=== PATIENT | female | born 1970 | race Hispanic/Latino ===

== ENCOUNTER 2019-12-16 11:56 | Emergency (ER) | payer OTHER, SELFPAY ==
[2019-12-16 12:10] VITALS: BP 134/98; PULSE 76; RESP 16; TEMP 36.2; O2SAT 99
--- NOTE | 2019-12-16 12:16 | ED.EAR ---
HPI - Ear Problem General Chief complaint: Ear Stated complaint: left ear pain Time Seen by Provider: 12/16/19 12:10 Source: patient and RN notes reviewed Mode of arrival: ambulatory Limitations: no limitations History of Present Illness HPI Narrative: Patient presents today complaining of pain behind the left ear x5 to 6 days. Denies any pain inside her ear, or of the external ear. She has been taking ibuprofen and putting cotton in her ear without relief. She currently rates her pain 5/10. Denies decreased hearing or any other recent illness to include cough, congestion, runny nose, sore throat. MD Complaint: other (Pain behind left ear) Related Data Allergies Allergy/AdvReac Type Severity Reaction Status Date / Time No Known Allergies Allergy Uncoded 05/16/19 00:53 Review of Systems Review of Systems: Narrative: CONSTITUTIONAL: Denies body aches, fever, chills, or sweats. EYES: Denies visual changes, redness, or discharge. ENT: Denies rhinorrhea, congestion, sore throat, or otalgia. Pain behind left ear CARDIOVASCULAR: Denies chest pain, palpitations, or edema. RESPIRATORY: Denies cough or dyspnea. GASTROINTESTINAL: Denies abdominal pain, nausea, vomiting, or diarrhea. GENITOURINARY: Denies dysuria or hematuria. SKIN: Denies rash, itching, or wounds. MUSCULOSKELETAL: Denies back pain, joint pain, or myalgia. NEUROLOGIC: Denies headache, numbness, tingling, or weakness. PSYCH: Denies depression or anxiety. PMFSH Comments At time of signature, I have reviewed and agree with nursing past medical, surgical, social and family history unless otherwise noted. Please see nursing chart for further information. There is no relevant family history pertinent to the presenting complaint Exam Narrative: Exam Narrative: GENERAL: Well-appearing, well-nourished, and in no acute distress. HEAD: Normocephalic, atraumatic. EYES: EOMI. No redness or drainage. Conjunctivae normal. ENT: Mucous membranes pink and moist. Left TM could not be visualized due to cerumen. Patient has some postauricular lymphadenitis and tenderness. No swelling or erythema noted. No tenderness to the external ear. Throat normal. Uvula midline. NECK: Normal AROM. CHEST: No respiratory distress. EXTREMITIES: Normal range of motion. No edema. SKIN: Warm, dry, no rash. Capillary refill normal. Normal skin turgor. NEURO: No focal deficits. Alert and oriented x3. Gait steady. PSYCH: Normal affect. No signs of depression or anxiety. Course Course Emergency Course: It is likely that patient could have otitis media, but unable to visualize the TM. Will place her on antibiotics and she is to follow-up with her PCP in 3 to 4 days if symptoms do not improve. Vital Signs Vital signs: Vital Signs Temperature 97.2 F L 12/16/19 12:10 Pulse Rate 76 12/16/19 12:10 Respiratory Rate 16 12/16/19 12:10 Blood Pressure 134/98 H 12/16/19 12:10 Pulse Oximetry 99 12/16/19 12:10 Temperature 97.2 F L 12/16/19 12:10 Pulse Rate 76 12/16/19 12:10 Respiratory Rate 16 12/16/19 12:10 Blood Pressure 134/98 H 12/16/19 12:10 Pulse Oximetry 99 12/16/19 12:10 Reviewed. Pt has been instructed to follow up with her PCP regarding her elevated blood pressure today. Medical Decision Making Differential Diagnosis Differential Diagnosis: Otitis media, otitis externa, mastoiditis, cerumen impaction, eustachian tube dysfunction, lymphadenitis Vital Signs Vital Signs: Vital Signs Temperature 97.2 F L 12/16/19 12:10 Pulse Rate 76 12/16/19 12:10 Respiratory Rate 16 12/16/19 12:10 Blood Pressure 134/98 H 12/16/19 12:10 Pulse Oximetry 99 12/16/19 12:10 Temperature 97.2 F L 12/16/19 12:10 Pulse Rate 76 12/16/19 12:10 Respiratory Rate 16 12/16/19 12:10 Blood Pressure 134/98 H 12/16/19 12:10 Pulse Oximetry 99 12/16/19 12:10 Critical Care Time Critical Care Time Critical Care Time: No Discharge Plan Discharge Clinica
== END 2019-12-16 12:24 | disposition home or self-care (01) ==
PROVIDERS: Emergency Provider Nurse Practitioner; PCP Registered Nurse
DX: R59.1 Generalized enlarged lymph nodes (principal); H66.92 Otitis media, unspecified, left ear
CPT/HCPCS: 99213; G0463

== ENCOUNTER 2021-03-02 09:27 | Emergency (ER) | payer OTHER, SELFPAY ==
--- NOTE | 2021-03-02 09:36 | ED.URI ---
HPI - URI/Sore Throat General Chief Complaint: Upper Respiratory Infection Stated Complaint: Sore Throat Time Seen by Provider: 03/02/21 09:37 Source: patient, RN notes reviewed and park interpreter (japanese) Mode of arrival: ambulatory Limitations: no limitations History of Present Illness HPI Narrative: 50-year-old female presents to the [facility] with complaints of a sore throat, cough, ear discomfort and pressure for 3 weeks. States she has had decreased hearing. Has tried multiple rarq-[id number] products to include Aleve, NyQuil and DayQuil. States there is no relief with the [id number]-cyitjnp products. Denies fevers. No chest pain. No abdominal pain. Denies shortness of breath Related Data Allergies Allergy/AdvReac Type Severity Reaction Status Date / Time No Known Allergies Allergy Uncoded 03/02/21 09:51 Review of Systems Review of Systems: All systems reviewed & are unremarkable except as noted in HPI and below Constitutional: Constitutional: Reports no additional constitutional complaints, Denies chills and Denies fever(s) Eyes: Eyes: Reports no additional eye complaints ENT: Reports as per HPI, Reports nasal congestion and Reports sore throat Comments: bilateral ear pressure Cardiovascular: Cardiovascular: Reports no additional cardiovascular complaints and Denies chest pain Respiratory: Respiratory: Reports no additional respiratory complaints, Denies cough, Denies dyspnea and Denies wheezing Gastrointestinal: Gastrointestinal: Reports no additional gastrointestinal complaints, Denies abdominal pain, Denies diarrhea, Denies nausea and Denies vomiting Musculoskeletal: Musculoskeletal: Reports no additional musculoskeletal complaints Integumentary/Breasts: Skin/Breast: Reports system reviewed and no additional complaints, except as docu Neurologic: Reports system reviewed and no additional complaints, except as documented Psychiatric: Psychiatric: Reports no additional psychiatric complaints Allergic/Immunologic: Allergic/Immunologic: Reports no additional allergic/immunologic complaints PMFSH Comments Denies past medical or surgical history. At the time of my signature, I reviewed and agree with the nursing past medical, surgical, social, and family history. There is no relevant family history pertinent to the patient complaint. Exam Const: General: healthy appearing, no acute distress and alert Nutritional Appearance: well nourished Orientation/consciousness: patient oriented x3 Limitations: no limitations HENMT: Head: normal to inspection Ears: hearing grossly normal bilaterally, external ears normal, Abnormal EAC present excessive cerumen bilateral; no erythema, no edema and no EA tenderness and unable to visualize TM bilaterally (Due to cerumen) General nose exam: Normal external nose present and Abnormal mucous membranes and turbinates present boggy bilateral and erythematous bilateral Face and sinus: normal facial exam and sinuses nontender Mouth: Yes Normal oral and palatal mucosa present and Yes lip normal Throat: posterior oropharynx normal, tonsils normal and uvula midline Eyes: Conjunctivae: conjunctivae normal Pupils: Equal, round and reactive pupils present Neck: Neck: normal visual inspection, no meningeal signs and lymphadenopathy bilateral submandibular soft, mobile and tender Chest: Chest palpation & inspection: normal inspection of the chest Resp: Effort & Inspection: normal respiratory effort and no use of accessory muscles Auscultation: clear to auscultation bilaterally, no crackles, no rales, no rhonchi and no wheezes Cardio: Rate: regular rate Rhythm: regular rhythm : General: Yes no CVA tenderness Back/Spine/Pelvis: Back: no CVA tenderness Skin: General skin exam: normal color Rashes: no rashes Wounds: no wounds Neuro: General: patient oriented x3, moves all extremities, no meningeal signs and no focal motor deficits Speech: normal speech Gait exam (Neuro): Normal gai
[2021-03-02 09:38] VITALS: BP 123/64; PULSE 78; RESP 18; TEMP 36.6; O2SAT 100
== END 2021-03-02 10:00 | disposition home or self-care (01) ==
PROVIDERS: Emergency Provider Nurse Practitioner; PCP Registered Nurse
DX: J40 Bronchitis, not specified as acute or chronic (principal); B35.1 Tinea unguium; H61.23 Impacted cerumen, bilateral
CPT/HCPCS: 99213; G0463

== ENCOUNTER 2021-03-26 10:44 | Emergency (ER) | payer OTHER, SELFPAY ==
[2021-03-26 10:59] VITALS: BP 113/57; PULSE 91; RESP 16; TEMP 37.7; O2SAT 98
--- NOTE | 2021-03-26 11:34 | ED.GENADULT ---
HPI - General Adult General Chief complaint: Upper Respiratory Infection Stated complaint: cough /fever Source: patient and family Mode of arrival: ambulatory Limitations: no limitations History of Present Illness HPI narrative: Patient is a 50-year-old female who presents to the [facility] accompanied by her via POV for an evaluation of cold symptoms that have been present for approximately 3 days. Additionally, she reports subjective fever, dry cough, rhinorrhea, and myalgias. Denies taking OTC meds for symptoms. Nothing improves or worsen symptoms. Denies known exposure to sick contacts. Patient has not been vaccinated against COVID-19. Related Data Allergies Allergy/AdvReac Type Severity Reaction Status Date / Time No Known Allergies Allergy Verified 03/26/21 11:20 Review of Systems Review of Systems: Denies chills, sweats, change in appetite, recent weight loss, LOC, dizziness, sinus problems, sneezing, ear problems, sore throat, swollen lymph nodes, wheezing, cyanosis, shortness of breath, abdominal pain, nausea, vomiting, diarrhea, chest pain, and heart palpitations PMFSH Social History Social History Gender identity (if verbalized by the patient): Female Comments I have reviewed and agree with the patient's past medical, surgical, social, and family hx as documented by the RN. There is no relevant family history pertinent to the presenting complaint. Exam Narrative: GENERAL: Well-appearing, well-nourished, and in no acute distress. HEAD: Normocephalic, atraumatic. No sinus tenderness or facial swelling appreciated. EYES: PERRLA and EOMI. No evidence of erythema, swelling, or drainage. ENT: Bilateral external ears and ear canals normal. Bilateral TMs are normal.No TM perforation. Nares clear, no rhinorrhea or epistaxis. Bilateral turbinates without erythema/ swelling. Mucous membranes moist and pink. Uvula is midline without erythema and swelling. No evidence of petechial rash, cobblestoning, lesions, ulcers, erythema, swelling, exudates, peritonsillar abscess, tenting, or drooling. Breath odor and voice normal. NECK: Supple. No Lymphadenopathy or nuchal rigidity appreciated. CHEST: Bilateral lung rivera are clear to auscultation. No respiratory distress. No pleuritic cp upon examination. Mild dry cough appreciated on examination. HEART: Regular rate and rhythm. No murmur, gallop, or rub heard. EXTREMITIES: Normal range of motion. No edema. SKIN: Warm, dry, no rash. NEURO: No focal deficits. Alert and oriented x3. Course Vital Signs Vital signs: Vital Signs Temperature 99.9 F H 03/26/21 10:59 Pulse Rate 91 03/26/21 10:59 Respiratory Rate 16 03/26/21 10:59 Blood Pressure 113/57 L 03/26/21 10:59 Pulse Oximetry 98 03/26/21 10:59 Temperature 99.9 F H 03/26/21 10:59 Pulse Rate 91 03/26/21 10:59 Respiratory Rate 16 03/26/21 10:59 Blood Pressure 113/57 L 03/26/21 10:59 Pulse Oximetry 98 03/26/21 10:59 Medical Decision Making Differential Diagnosis Differential Diagnosis: Allergic rhinitis, ABRS, acute viral sinusitis, strep pharyngitis, nasopharyngitis, bronchitis, pneumonia, AOM, otitis externa, viral URI, influenza, COVID-19 Medical Records Medical records reviewed: Yes I reviewed the external patient's medical records. Vital Signs Vital Signs: Vital Signs Temperature 99.9 F H 03/26/21 10:59 Pulse Rate 91 03/26/21 10:59 Respiratory Rate 16 03/26/21 10:59 Blood Pressure 113/57 L 03/26/21 10:59 Pulse Oximetry 98 03/26/21 10:59 Temperature 99.9 F H 03/26/21 10:59 Pulse Rate 91 03/26/21 10:59 Respiratory Rate 16 03/26/21 10:59 Blood Pressure 113/57 L 03/26/21 10:59 Pulse Oximetry 98 03/26/21 10:59 Lab Data Lab results reviewed: Yes I reviewed the patient's lab results. Lab results narrative: Covid positive Critical Care Time Critical Care Time Critical Ca
== END 2021-03-26 11:50 | disposition home or self-care (01) ==
PROVIDERS: Emergency Provider Nurse Practitioner Family
DX: U07.1 COVID-19 (principal)
CPT/HCPCS: 87426; 99213; C9803; G0463

== ENCOUNTER 2023-08-29 14:50 | Emergency (ER) | payer MEDICAID, SELFPAY ==
[2023-08-29 15:01] VITALS: BP 125/65; PULSE 63; RESP 16; TEMP 37; O2SAT 100
--- NOTE | 2023-08-29 16:03 | ED.URI ---
HPI - URI/Sore Throat General Chief Complaint: Upper Respiratory Infection Stated Complaint: Cough Time Seen by Provider: 08/29/23 15:50 Source: patient, RN notes reviewed and network security consultant Mode of arrival: ambulatory Limitations: no limitations History of Present Illness HPI Narrative: Patient presents today with a 10 day history of cough, chest congestion, body aches, and subjective fever. She has tried TheraFlu and NyQuil without much relief. No history of asthma or COPD. She is a nonsmoker. Related Data Allergies Allergy/AdvReac Type Severity Reaction Status Date / Time No Known Allergies Allergy Verified 08/29/23 15:16 Review of Systems Review of Systems: CONSTITUTIONAL: Denies chills, or sweats.+ body aches, fever EYES: Denies visual changes, redness, or discharge. ENT: Denies rhinorrhea, , sore throat, or otalgia.+ congestion CARDIOVASCULAR: Denies chest pain, palpitations, or edema. RESPIRATORY: Denies dyspnea.+ cough GASTROINTESTINAL: Denies abdominal pain, nausea, vomiting, or diarrhea. GENITOURINARY: Denies dysuria or hematuria. SKIN: Denies rash, itching, or wounds. MUSCULOSKELETAL: Denies back pain, joint pain, or myalgia. NEUROLOGIC: Denies headache, numbness, tingling, or weakness. PSYCH: Denies depression or anxiety. [facility] Social History Social History Gender identity (if verbalized by the patient): Female Comments At time of signature, I have reviewed and agree with nursing past medical, surgical, social and family history unless otherwise noted. Please see nursing chart for further information. There is no relevant family history pertinent to the presenting complaint Exam Narrative: GENERAL: Well-appearing, well-nourished, and in no acute distress. HEAD: Normocephalic, atraumatic. EYES: EOMI. No redness or drainage. Conjunctivae normal. ENT: Mucous membranes pink and moist. Nares clear. No rhinorrhea. TMs normal bilaterally. Throat normal. Uvula midline. NECK: Normal AROM. Supple. No lymphadenopathy. CHEST: No respiratory distress. Clear to auscultation. HEART: Regular rate and rhythm. No murmur appreciated. EXTREMITIES: Normal range of motion. No edema. SKIN: Warm, dry, no rash. Capillary refill normal. Normal skin turgor. NEURO: No focal deficits. Alert and oriented x3. Gait steady. PSYCH: Normal affect. No signs of depression or anxiety. Course Course Level of Care: Express Care Visit Vital Signs Vital signs: Vital Signs Temperature 98.6 F 08/29/23 15:01 Pulse Rate 63 08/29/23 15:01 Respiratory Rate 16 08/29/23 15:01 Blood Pressure 125/65 08/29/23 15:01 Pulse Oximetry 100 08/29/23 15:01 Oxygen Delivery Room Air 08/29/23 15:01 Temperature 98.6 F 08/29/23 15:01 Pulse Rate 63 08/29/23 15:01 Respiratory Rate 16 08/29/23 15:01 Blood Pressure 125/65 08/29/23 15:01 Pulse Oximetry 100 08/29/23 15:01 Oxygen Delivery Room Air 08/29/23 15:01 Reviewed MDM - URI/Sore Throat MDM Narrative Medical decision making narrative: Patient will be treated with Augmentin for lower respiratory infection. Instructed that she may continue eoin-fye-[id number] medication as needed. Anticipatory guidance given. Differential Diagnosis Differential diagnosis: Likely upper respiratory infection, sinusitis, viral infection, bronchitis and other (Pneumonia) Critical Care Time Critical Care Time Critical Care Time: No Discharge Plan Discharge Clinical Impression: Acute lower respiratory infection Patient Disposition: Home, Self-Care Condition: Stable Instructions: Antibiotic Form Additional Instructions: [place] Augmentin seg?n lo prescrito hasta que se acabe. Contin?e con los medicamentos de venta etienne seg?n sea necesario para manuel s?ntomas. Rodri un seguimiento con kebede PCP en 3 d?as si los s?ntomas no mejoran. Vaya a la eddi de emergencias de inmediato si presenta dolor en el
== END 2023-08-29 16:09 | disposition home or self-care (01) ==
PROVIDERS: Emergency Provider Nurse Practitioner; PCP Registered Nurse
DX: J22 Unspecified acute lower respiratory infection (principal)
CPT/HCPCS: 99213; G0463

== ENCOUNTER 2023-12-02 18:01 | Emergency (ER) | payer OTHER, SELFPAY ==
[2023-12-02 18:10] VITALS: BP 138/78; PULSE 62; RESP 16; TEMP 36.8; O2SAT 100
--- NOTE | 2023-12-02 18:10 | ED.SKABFB ---
HPI - Skin/Abscess/Foreign Bdy General Chief complaint: Skin/Abscess/Foreign Body Stated complaint: Rash Time Seen by Provider: 12/02/23 18:10 Source: patient Mode of arrival: ambulatory Limitations: no limitations History of Present Illness HPI narrative: 53 yo F presents with with poison char rash x 6 days. Was cleaning weeds out of backyard. Applying an OTC poison char antihistamine cream. Rash to both arms, neck, chest, Breast, groin and privates. All systems reviewed and negative except as noted above. Related Data Allergies Allergy/AdvReac Type Severity Reaction Status Date / Time No Known Allergies Allergy Verified 12/02/23 18:02 Review of Systems Review of Systems: CONSTITUTIONAL: Denies fever, chills, or sweats. EYES: Denies visual changes, redness, or discharge. ENT: Denies rhinorrhea, congestion, sore throat, or otalgia. CARDIOVASCULAR: Denies chest pain, palpitations, or edema. RESPIRATORY: Denies cough or dyspnea. GASTROINTESTINAL: Denies abdominal pain, nausea, vomiting, or diarrhea. GENITOURINARY: Denies dysuria or hematuria. SKIN: Reports poison char rash. MUSCULOSKELETAL: Denies back pain, joint pain, or myalgia. NEUROLOGIC: Denies headache, numbness, or weakness. PSYCHIATRIC: Denies anxiety or depression. All other systems reviewed are negative, except as documented in HPI. PMFSH Social History Social History Gender identity (if verbalized by the patient): Female Comments At time of signature, agree with nursing past medical, surgical, social and family history. There is no relevant family history pertinent to the presenting complaint. Exam Narrative: GENERAL: This is a well-nourished, well-developed patient, in no apparent distress. HEAD: normocephalic, atraumatic. EYES: PERRL. Sclera clear/white. Vision is grossly intact. EARS: External ears normal NOSE: External nose normal NECK: Neck supple, non-tender without lymphadenopathy, masses or thyromegaly. CARDIOVASCULAR: Regular rate and rhythm without murmurs, gallops, or rubs. RESPIRATORY: Clear to auscultation. Breath sounds equal bilaterally. No wheezes, rales, or rhonchi. SKIN: warm, Dry, intact, good texture and turgor. erythematous vesicular rash to neck, chest, R breast, ABD, groin. no signs of infection. NEURO: awake, alert, and oriented to person, place and time. There were no obvious focal neurologic abnormalities. EXTREMITIES: No joint tenderness, effusion, or edema noted. Course Course Level of Care: Express Care Visit Vital Signs Vital signs: Vital Signs Temperature 36.8 C 12/02/23 18:10 Pulse Rate 62 12/02/23 18:10 Respiratory Rate 16 12/02/23 18:10 Blood Pressure 138/78 12/02/23 18:10 Pulse Oximetry 100 12/02/23 18:10 Oxygen Delivery Room Air 12/02/23 18:10 Temperature 36.8 C 12/02/23 18:10 Pulse Rate 62 12/02/23 18:10 Respiratory Rate 16 12/02/23 18:10 Blood Pressure 138/78 12/02/23 18:10 Pulse Oximetry 100 12/02/23 18:10 Oxygen Delivery Room Air 12/02/23 18:10 Reviewed MDM - Skin/Abscess/Foreign Bdy MDM Narrative Medical decision making narrative: Patient is aware of diagnosis, understands and agrees to treatment plan. Anticipatory guidance given. Patient agrees to follow-up as directed and is aware of reasons to seek care at the emergency department. Portions of this record may have been created with voice recognition software Differential Diagnosis Differential diagnosis: Likely contact dermatitis Discharge Plan Discharge Clinical Impression: Dermatitis due to plants, including poison char, sumac, and oak Patient Disposition: Home, Self-Care Condition: Stable Instructions: Poison Char (ED) Additional Instructions: take medications as prescribed. Hydroxyzine may cause drowsiness, do Not drive while taking this medication. apply steroid cream 2 to 3 times
== END 2023-12-02 18:30 | disposition home or self-care (01) ==
PROVIDERS: Emergency Provider Nurse Practitioner Family; PCP Registered Nurse
DX: L25.5 Unspecified contact dermatitis due to plants, except food (principal)
CPT/HCPCS: 99213; G0463